=== PATIENT | female | born 1945 | race African-American/Black ===

== ENCOUNTER 2019-05-26 14:21 | Outpatient (CLI) | payer MEDICARE ==
--- NOTE | 2019-05-26 15:53 | XRay Report ---
CHEST 2 VIEWS INDICATION: PNEUMONIA. COMPARISON: None. FINDINGS: Support devices: None. Heart: Within normal limits. Pulmonary vasculature: Normal. Lungs/pleura: No acute air space or interstitial disease. No pneumothorax. Additional findings: None. IMPRESSION: 1. No acute findings. Signer Name: Rocky Goodrich MD Signed: 05/26/2019 3:48 PM Workstation Name: [id number]
== END 2019-05-26 14:22 | disposition home or self-care (01) ==
LOC: SPVIMAG 14:21
PROVIDERS: ATTEND Internal Medicine
DX: J18.9 Pneumonia, unspecified organism (principal)
CPT/HCPCS: 71046